=== PATIENT | male | born 1980 | race Caucasian/White ===

== ENCOUNTER 2019-08-10 15:43 | Emergency (ER) | payer SELFPAY ==
[2019-08-10] MEDS ORDERED: IPRATROPIUM/ALBUTEROL 3 ML NEB INH STA (16:24)
--- NOTE | 2019-08-10 16:24 | ED Physician Documentation ---
History of Present Illness - Stated complaint Stated Complaint: LT SIDE ABD PX - Chief complaint Chief Complaint: Abd Pain - History obtained from History obtained from: Patient - History of Present Illness Timing: Last night Pain level max: 5 Pain level now: 4 - Additonal information Additional information: 39-year-old male states that he is a smoker and has been coughing for the past 2 to 3 days. He states last night he felt pain in his left lower ribs when coughing. Today he feels like the area is firm. Pain is worse with movement, coughing and palpation. Better with rest. He felt like he had a subjective fever last night. No vomiting. No rhinorrhea or congestion. He states that the cough is no worse than his normal cough. Review of Systems Constitutional: reports: Chills Respiratory: reports: Cough Skin: denies: Rash Musculoskeletal: denies: Neck pain, Back pain Neurologic: denies: Headache PD PAST MEDICAL HISTORY - Past Medical History Past Medical History: Yes Cardiovascular: None Respiratory: None Neuro: None Endocrine/Autoimmune: None GI: GERD : None HEENT: Chronic vision loss Psych: None Musculoskeletal: Osteoarthritis Derm: None - Past Surgical History Past Surgical History: Yes Derm: Skin grafts - Present Medications Home Medications: Ambulatory Orders Medication Instructions Recorded Confirmed Albuterol Sulf [Ventolin Hfa 1 - 2 puffs INH Q4HR PRN #1 inhaler 08/10/19 Inhaler] Ibuprofen [Motrin] 800 mg PO Q8H PRN #30 tablet 08/10/19 - Allergies Allergies/Adverse Reactions: Allergies Allergy/AdvReac Type Severity Reaction Status Date / Time No Known Drug Allergies Allergy Verified 08/10/19 15:47 - Social History Does the pt smoke?: Yes Smoking Status: Current every day smoker Does the pt drink ETOH?: No Does the pt have substance abuse?: Yes Substance Use and Type: Marijuana - Immunizations Immunizations are current?: No Immunizations: TDAP >10years/unknown - POLST Patient has POLST: No PD ED PE NORMAL - Vitals Vital signs reviewed: Yes - General General: Alert and oriented X 3, No acute distress, Well developed/nourished - HEENT HEENT: PERRL, Ears normal, Moist mucous membranes, Pharynx benign - Neck Neck: Supple, no meningeal sign - Cardiac Cardiac: RRR - Respiratory Respiratory: No respiratory distress, Other (Diminished breath sounds bilaterally) - Abdomen Abdomen: Soft, Non tender, Non distended - Derm Derm: Warm and dry - Extremities Extremities: No edema - Neuro Neuro: Alert and oriented X 3 - Psych Psych: Normal mood, Normal affect Results - Vitals Vitals: Vital Signs - 24 hr 08/10/19 08/10/19 08/10/19 15:47 16:04 16:54 Temperature 36.8 C 36.8 C Heart Rate 78 74 64 Respiratory 14 18 14 Rate Blood Pressure 133/80 H 147/86 H O2 Saturation 99 98 08/10/19 17:24 Temperature 36.7 C Heart Rate 69 Respiratory 18 Rate Blood Pressure 122/78 O2 Saturation 96 Oxygen O2 Source Room air - Rads (name of study) Chest x-ray Radiology: Prelim report reviewed, EMP read contemporaneously, See rad report (no acute disease.) PD MEDICAL DECISION MAKING - ED course Complexity details: reviewed results, re-evaluated patient, considered differential, d/w patient ED course: Patient with what appears to be a viral upper respiratory infection with left rib pain on coughing. Possible costochondritis versus pleurisy. No acute findings on x-ray. Feels better after nebulizer treatment. Will prescribe an inhaler for home as well. Patient counseled regarding signs and symptoms for which I believe and urgent re-evaluation would be necessary. Patient with good understanding of and agreement to plan and is comfortable going home at this time This document was made in part using voice recognition software. While efforts are made to proofread this document, sound alike and grammatical errors may occur. Departure - Departure Disposition: 01 Home, Self Care Clinical Impression: Rib pain on left side Condition: Good Instructions: ED Chest Pain Costochondritis Follow-Up: your,doctor in 1 week [Other] Prescriptions: Albuterol Sulf [Ventolin Hfa Inhaler] 1 - 2 puffs INH Q4HR PRN #1 inhaler PRN Reason: Shortness Of Air/Wheezing Ibuprofen [Motrin] 800 mg PO Q8H PRN #30 tablet PRN Reason: PAIN &/OR FEVER Comments: This should improve over the next few days. Your x-ray does not show any acute abnormalities. Return if you worsen. Discharge Date/Time: 08/10/19 17:32
--- NOTE | 2019-08-10 17:03 | XRAY Report ---
Reason: cough, L chest wall pain Procedure Date: 08/10/2019 Accession Number: [id number] / [id number] Procedure: XR - Chest 2 View X-Ray CPT Code: 73909 Final Report FULL RESULT: EXAM: CHEST RADIOGRAPHY EXAM DATE: 08/10/2019 04:33 PM. CLINICAL HISTORY: Cough and left chest wall pain x3 days. COMPARISON: None. TECHNIQUE: 2 views. FINDINGS: Lungs/Pleura: Normal volumes. No focal infiltrate or bronchial wall thickening. No evidence of edema. No pleural effusion or pneumothorax. Mediastinum: Normal cardiomediastinal contour. Other: The bones are normal. IMPRESSION: Normal 2 view chest radiograph. [facility]
[2019-08-10 17:26] VITALS: BP 122/78
== END 2019-08-10 17:32 | disposition home or self-care (01) ==
LOC: ED 15:43
DX: R07.81 Pleurodynia (principal); F17.210 Nicotine dependence, cigarettes, uncomplicated
CPT/HCPCS: 71046; 94640; 94664; 99283; 99284

== ENCOUNTER 2019-09-02 09:43 | Outpatient (CLI) | payer MEDICAID ==
--- NOTE | 2019-09-03 01:58 | XRAY Report ---
Reason: PRODUCTIVE COUGH Procedure Date: 09/02/2019 Accession Number: [id number] / [id number] Procedure: WCP - Chest 2 View X-Ray CPT Code: 10338 Final Report FULL RESULT: EXAM: CHEST RADIOGRAPHY EXAM DATE: 09/02/2019 09:43 AM. CLINICAL HISTORY: PRODUCTIVE COUGH. COMPARISON: CHEST 2 VIEW 08/10/2019 4:23 PM. TECHNIQUE: 2 views. FINDINGS: Lungs/Pleura: No focal opacities evident. No pleural effusion. No pneumothorax. Normal volumes. Mediastinum: Heart and mediastinal contours are unremarkable. Other: None. IMPRESSION: Normal 2-view chest radiography. [facility]
== END 2019-09-02 23:59 | disposition home or self-care (01) ==
LOC: DI.WCP 09:43
PROVIDERS: ATTEND Physician Assistant
DX: R05 Cough (principal); Z00.00 Encounter for general adult medical examination without abnormal findings
CPT/HCPCS: 36415; 71046; 80053; 80061; 83036; 83721; 84443; 85025

== ENCOUNTER 2019-09-02 09:47 | Outpatient (CLI) | payer MEDICAID ==
[2019-09-02 12:06] LABS: BASOPHILS % (AUTO) 0.3 %; EOSINOPHILS # (AUTO) 0.1 10^3/uL (0.0-0.7); EOSINOPHILS % (AUTO) 1.5 %; HGB - HEMOGLOBIN 13.1 g/dL (14.0-18.0); LYMPHOCYTES # (AUTO) 2.9 10^3/uL (1.5-3.5); LYMPHOCYTES % (AUTO) 30.2 %; MEAN CORPUSCULAR HEMOGLOBIN 30.4 pg (27.0-31.0); MEAN CORPUSCULAR HGB CONC 32.8 g/dL (32.0-36.0); MEAN CORPUSCULAR VOLUME 92.8 fL (80.0-94.0); MONOCYTES # (AUTO) 0.8 10^3/uL (0.0-1.0); MONOCYTES % (AUTO) 8.1 %; NEUTROPHILS # (AUTO) 5.7 10^3/uL (1.5-6.6); NEUTROPHILS % (AUTO) 59.5 %; PLT - PLATELET COUNT 291 10^3/uL (130-450); RED BLOOD COUNT 4.31 10^6/uL (4.70-6.10); RED CELL DISTRIBUTION WIDTH 12.4 % (12.0-15.0); WHITE BLOOD COUNT 9.6 x10^3/uL (4.8-10.8)
[2019-09-02 12:24] LABS: HB2 TOTAL 13.8 g/dL; HEMOGLOBIN A1C 0.48 g/dL; HEMOGLOBIN A1C % 5.3 % (4.6-6.2)
[2019-09-02 12:31] LABS: ALBUMIN 4.9 g/dL (3.2-5.5); ALBUMIN/GLOBULIN RATIO 1.5 (1.0-2.2); ALKALINE PHOSPHATASE 61 IU/L (42-121); ALT ALANINE AMINOTRANSFERASE 83 IU/L (10-60); AST ASPARTATE AMINOTRANSFERASE 32 IU/L (10-42); BILIRUBIN,TOTAL 1.1 mg/dL (0.2-1.0); BUN - BLOOD UREA NITROGEN 16 mg/dL (6-20); CARBON DIOXIDE - CO2 26 mmol/L (21-32); CHLORIDE 104 mmol/L (101-111); CHOL/HDL RATIO 11.8 (<5.0); CHOLESTEROL 376 mg/dL; CREATININE 0.9 mg/dL (0.6-1.2); GLUCOSE 93 mg/dL (70-100); HDL CHOLESTEROL 32 mg/dL; SODIUM 138 mmol/L (135-145); TOTAL PROTEIN 8.2 g/dL (6.7-8.2)
[2019-09-02 12:51] LABS: LDL CHOLESTEROL,DIRECT 96 mg/dL
== END 2019-09-02 23:59 | disposition home or self-care (01) ==
LOC: LAB.WCP 09:47
PROVIDERS: ATTEND Physician Assistant
DX: Z00.00 Encounter for general adult medical examination without abnormal findings (principal)
CPT/HCPCS: 36415; 80053; 80061; 83036; 83721; 84443; 85025